=== PATIENT | male | born 1970 | race African-American/Black ===

== ENCOUNTER 2019-10-01 06:24 | Emergency (ER) | payer OTHER ==
[2019-10-01 06:51] VITALS: BMI 28.7
--- NOTE | 2019-10-01 07:15 | PDOC ---
History of Present Illness - General Chief Complaint: Chest Pain Stated Complaint: CHEST PAIN Time Seen by Provider: 10/01/19 06:58 - History of Present Illness Initial Comments: 10/01/19 07:09 The patient is a 49 y/o male with PMHx of HTN and Rheumatoid Arthritis here with chest pain. Pain woke patient from sleep around 5:30 a.m. and is L sided, "squeezing" and non-radiating. Associated with shortness of breath. No lightheadedness, palpitations, nausea, diaphoresis. BP measured by 160/ 120. States he did some arm exercises and took his anti-hypertensives with some relief of the pain within 30 minutes. Had not taken his anti- hypertensives for the last two days, though he does have the medication at home. Recent 5 day course of Amoxicillin following tooth removal. Episode of GERD yesterday evening following drinking a glass of wine. H/o stress testing 3 months previous with normal results. Remote h/o smoking for 5 years. Reports ASA or Lisinopril allergy with angioedema like reaction following administration of ASA/Lisinopril tablet previously. Family history significant for maternal HTN. PMD: Cannot recall name As per EMR, no previous evaluation in our ED. Past History - Past Medical History Allergies/Adverse Reactions: Allergies Allergy/AdvReac Type Severity Reaction Status Date / Time No Known Allergies Allergy Verified 10/01/19 06:51 - Psycho Social/Smoking Cessation Hx Smoking History: Never smoked Hx Alcohol Use: Yes Review of Systems - Review of Systems Constitutional: No: Chills, Fever HEENTM: No: Recent change in vision Respiratory: Yes: Shortness of Breath. No: Cough, Wheezing Cardiac (ROS): Yes: Chest Pain. No: Lightheadedness, Palpitations, Syncope ABD/GI: No: Constipated, Diarrhea, Nausea, Vomiting Neurological: No: Headache, Weakness *Physical Exam - Vital Signs Last Vital Signs Temp Pulse Resp BP Pulse Ox 98.6 F 84 18 148/96 99 10/01/19 06:25 10/01/19 06:25 10/01/19 06:25 10/01/19 06:25 10/01/19 06:25 - Physical Exam 10/01/19 07:53 Triage VS reviewed NAD CV: S1, S2, RRR Respiratory: CLTA B/L, no wheeze/crackle Abdomen: soft, non-tender, (+) TTP Extremity: no calf tenderness, no edema, 2+ DP pulses Neuro: A&O x3, CN II-XII intact ED Treatment Course - LABORATORY CBC & Chemistry Diagram: 10/01/19 07:27 10/01/19 07:27 Medical Decision Making - Medical Decision Making 10/01/19 07:13 49 y/o male with chest pain. Pain resolved with muscle stretching and anti-hypertensives Hypertensive (137/100) - however patient recently took HCTZ, Amoldipine within the last 1 hour - continue to monitor Will evaluate for r/o ACS, also consider MSK, costochondritis, GERD, Esophageal Spasm, gastritis. PLAN - EKG, Troponin, CXR - Clopidrogel as patient has possible ASA allergy - Business Functional Analyst 10/01/19 07:51 EKG with SHAHBAZ in V1-V3, flat T waves in leads II; SHAHBAZ concerning for STEMI vs. early repolarization Labs pending 10/01/19 08:38 CBC unremarkable Troponin, CMP pending 10/01/19 09:14 Troponin, BNP wnL CMP otherwise unremarkable 10/01/19 09:17 Reassessed @ bedside, remains ASx VSS - repeat BP 148/96 10/01/19 11:23 Repeat EKG w/o acute ischemic change 10/01/19 12:26 Repeat Troponin (-) 10/01/19 12:44 Patient counseled on importance of f/u with PMD for further evaluation Clinical Impression: Atypical CP, possibly 2/2 to medication non-adherence to anti-hypertensive regimen Discharge - Discharge Information Problems reviewed: Yes Clinical Impression/Diagnosis: Pain Condition: Good Disposition: HOME - Admission No - Follow up/Referral Referrals: Gregory Baez [Primary Care Provider] - - Patient Discharge Instructions Patient Printed Discharge Instructions: DI for Atypical Chest Pain, DI for Chest Pain Additional Instructions: You were evaluated today for your chest pain. A chest x-ray, an EKG and your labs showed no concerning findings and at this time you are safe for discharge home. Please continue to take your blood pressure medications as prescribed. Please make a follow-up appointment with your primary care doctor in the next 3 days. Your care is not complete until you are evaluated by your primary care doctor. Return to the Emergency Department for any new/worsening/concerning symptoms. - Post Discharge Activity
[2019-10-01] MEDS ORDERED: ASPIRIN 325 MG TABLET PO ONE (07:36)
[2019-10-01] MEDS ORDERED: ASPIRIN 81 MG CHEWABLE TABLETS ONE (07:41)
[2019-10-01] MEDS ORDERED: CLOPIDOGREL BISULFATE 300 MG TABLET PO ONE (07:46)
[2019-10-01] MEDS ORDERED: CLOPIDOGREL BISULFATE 300 MG TABLET ONE (07:46)
[2019-10-01 08:07] VITALS: BP 137/100; PULSE 83; TEMP 98.2
[2019-10-01 08:31] LABS: BASO % 0.5 % (0-2.0); EOS % 2.9 % (0-4.5); HEMATOCRIT 40.6 % (35.4-49); HEMOGLOBIN 13.5 GM/dL (11.7-16.9); LYMPH % 40.9 % (8-40); MCH 29.9 pg (25.7-33.7); MCHC 33.2 g/dl (32.0-35.9); MEAN CELL VOLUME 90.1 fl (80-96); MEAN PLT VOLUME 9.4 fl (7.5-11.1); MONO % 8.9 % (3.8-10.2); NEUT % 46.8 % (42.8-82.8); PLATELET COUNT 246 K/MM3 (134-434); RBC 4.51 M/mm3 (4.00-5.60); RDW 14.1 % (11.9-15.9); WHITE BLOOD COUNT 6.5 K/mm3 (4.0-10.0)
[2019-10-01 08:42] LABS: INR 0.97 (0.83-1.09); PROTHROMBIN TIME (PATIENT) 11.5 SEC (9.7-13.0)
[2019-10-01 08:44] LABS: ACTIVATED PTT 39.5 SECONDS (25.2-36.5)
[2019-10-01 09:03] LABS: ALBUMIN 3.4 g/dl (3.4-5.0); ALK PHOS 53 U/L (45-117); ANION GAP 6 MMOL/L (8-16); BILIRUBIN,TOTAL 0.6 mg/dL (0.2-1); CHLORIDE 106 mmol/L (98-107); CO2 27 mmol/L (21-32); CREATININE 0.9 mg/dL (0.55-1.3); GLUCOSE,RANDOM 97 mg/dL (74-106); N-TERMINAL BNP < 5.0 pg/ml (5-125); POTASSIUM 4.2 mmol/L (3.5-5.1); SGOT/AST 22 U/L (15-37); SGPT/ALT 45 U/L (13-61); SODIUM 139 mmol/L (136-145); TOT PROT 7.6 g/dl (6.4-8.2)
--- NOTE | 2019-10-01 10:18 | PDOC ---
Attending Attestation - Resident Resident Name: Edilberto Jonesica - ED Attending Attestation I have performed the following: I have examined & evaluated the patient, The case was reviewed & discussed with the resident, I agree w/resident's findings & plan - HPI HPI: 10/01/19 10:13 49-year-old male with history of hypertension presents with chest pain this morning. Patient was in his usual state of good health, which includes unlimited exercise tolerance, admits to medication noncompliance for the last 48 hours, and awoke this morning fine but developed left chest tightness upon standing from bed, not associated with any lightheadedness/nausea/palpitations/ shortness of breath/diaphoresis. The patient took his blood pressure medications after measurement was 160/120, symptoms improved over the next 20 minutes, presents for evaluation. At baseline, has no exercise limitations, had a normal exercise stress test 3 months ago. Denies any preceding symptoms of shortness of breath or leg swelling - Physicial Exam PE: 10/01/19 10:14 Vitals as noted, blood pressure initially 130/100,Now 135/90 Well-appearing seated comfortably in stretcher in no acute distress Heart is regular, lungs are clear Abdomen benign No edema Neuro normal - Medical Decision Making 10/01/19 10:15 49-year-old male with history of difficult to control hypertension presents with nonexertional episode of chest pain this morning in the setting of elevated blood pressure and likely hypertensive episode in the setting of medication noncompliance for 48 hours. Patient is well-appearing here with normal exam and no evidence of endorgan injury, will need cardiac work-up to rule out heart strain, which would likely be due to elevated blood pressure more so than CAD/ACS, particularly given the normal stress test 3 months ago. 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 if patient can recall name/number 10/01/19 10:58 first trop negative, CXR normal remains asx 2nd EKG unchanged 2nd trop pending, then dispo Heart Score/ECG Review #1 ECG reviewed & interpreted by me at: 07:46 General ECG Interpretation: Sinus Rhythm, Normal Rate (79), Normal Intervals ( qtc 417), No acute ischemic changes (early repol change V2V3 without reciprocal changes) Compared to previous ECG there are: Previous ECG unavail #2 ECG reviewed & interpreted by me at: 10:44 General ECG Interpretation: Sinus Rhythm, Normal Rate (82), Normal Intervals ( qtc 408), No acute ischemic changes (early repol, no T wave changes) Compared to previous ECG there are: No significant change
[2019-10-01 10:30] LABS: ANISOCYTOSIS 0; MACROCYTOSIS 0; PLATELET ESTIMATE NORMAL
--- NOTE | 2019-10-01 10:33 | EKG ---
Test Reason : Blood Pressure : / mmHG Vent. Rate : 079 BPM Atrial Rate : 079 BPM P-R Int : 128 ms QRS Dur : 088 ms QT Int : 364 ms P-R-T Axes : 057 044 013 degrees QTc Int : 417 ms NORMAL SINUS RHYTHM ST ELEVATION CONSIDER ANTERIOR INJURY OR ACUTE INFARCT ACUTE NV / STEMI ABNORMAL ECG NO PREVIOUS ECGS AVAILABLE Confirmed by Tin Berumen MD ([id number]) on 10/01/2019 10:32:48 AM Referred By: Confirmed By:Tin Berumen MD
--- NOTE | 2019-10-01 16:23 | EKG ---
Test Reason : Blood Pressure : / mmHG Vent. Rate : 082 BPM Atrial Rate : 082 BPM P-R Int : 128 ms QRS Dur : 090 ms QT Int : 350 ms P-R-T Axes : 055 054 007 degrees QTc Int : 408 ms NORMAL SINUS RHYTHM POSSIBLE LEFT ATRIAL ENLARGEMENT NONSPECIFIC ST AND T WAVE ABNORMALITY ABNORMAL ECG WHEN COMPARED WITH ECG OF 01-OCT-2019 07:46, NO SIGNIFICANT CHANGE WAS FOUND Confirmed by MD Brinda, Diomedes ([id number]) on 10/01/2019 4:23:19 PM Referred By: Confirmed By:Diomedes Parry MD
== END 2019-10-01 12:39 | disposition home or self-care (01) ==
LOC: JER 06:24
DX: R07.9 Chest pain, unspecified (principal); I10 Essential (primary) hypertension; M06.9 Rheumatoid arthritis, unspecified
CPT/HCPCS: 36415; 71045-TC-FY; 80053; 82550; 83880; 84484; 85025; 85610; 85730; 93005; 93010; 99285-25

== ENCOUNTER 2020-08-20 14:20 | Inpatient (IN) | payer OTHER ==
[2020-08-20] MEDS ORDERED: FAMOTIDINE 20 MG/50 ML IVPB 20 MG/50 ML MG IVPB ONE ×2 (15:59→16:10)
[2020-08-20] MEDS ORDERED: MAG HYDROX/AL HYDROX/SIMETH 30 ML UNIT-DOSE CUP PO ONE (15:59)
[2020-08-20] MEDS ORDERED: ONDANSETRON 4 MG/2 ML VIAL IVPUSH ONE (15:59)
[2020-08-20] MEDS ORDERED: LACTATED RINGERS SOLUTION 1000 ML INFUS.BAG IV ONE ×2 (15:59→17:13)
[2020-08-20] MEDS ORDERED: ONDANSETRON 4 MG/2 ML VIAL ONE (16:10)
[2020-08-20] MEDS ORDERED: MAG HYDROX/AL HYDROX/SIMETH 30 ML UNIT-DOSE CUP ONE (16:10)
[2020-08-20 16:42] LABS: BASO % 0.4 % (0-2.0); HEMATOCRIT 43.6 % (35.4-49); HEMOGLOBIN 14.4 GM/dL (11.7-16.9); LYMPH % 10.2 % (8-40); MEAN CELL VOLUME 91.1 fl (80-96); MEAN PLT VOLUME 10.2 fl (7.5-11.1); MONO % 3.8 % (3.8-10.2); NEUT % 85.6 % (42.8-82.8); PLATELET COUNT 254 K/MM3 (134-434); RBC 4.78 M/mm3 (4.00-5.60); RDW 13.9 % (11.9-15.9); WHITE BLOOD COUNT 9.9 K/mm3 (4.0-10.0)
[2020-08-20 16:56] LABS: POTASSIUM 4.6 mmol/L (3.5-5.1)
[2020-08-20 16:58] LABS: CALCIUM 9.2 mg/dL (8.5-10.1)
[2020-08-20 16:59] LABS: ALBUMIN 3.2 g/dl (3.4-5.0); BLOOD UREA NITROGEN 21.9 mg/dL (7-18)
[2020-08-20 17:02] LABS: CREATININE 1.7 mg/dL (0.55-1.3)
[2020-08-20 17:03] LABS: BILIRUBIN,TOTAL 0.6 mg/dL (0.2-1); TOT PROT 7.8 g/dl (6.4-8.2)
[2020-08-20 17:13] LABS: INR 0.96 (0.83-1.09); PROTHROMBIN TIME (PATIENT) 11.6 SEC (9.7-13.0)
[2020-08-20] MEDS ORDERED: SODIUM CHLORIDE 0.9% 500 ML INFUS.BAG IV ONE (17:14)
[2020-08-20 17:16] LABS: ACTIVATED PTT 31.7 SECONDS (25.2-36.5)
[2020-08-20 18:44] LABS: ARTERIAL BLD GAS O2 SATURATION 96.9 mmHg (95-98); ARTERIAL BLOOD GAS BASE EXCESS -17.6 mmol/L (-2-2); ARTERIAL BLOOD GAS PO2 107.7 mmHg (80-100)
[2020-08-20 18:47] LABS: ALLENS TEST POSITIVE
[2020-08-20 18:50] LABS: ARTERIAL BLOOD GAS pH 7.191 (7.350-7.450)
[2020-08-20] MEDS ORDERED: INSULIN REGULAR HUMAN 100 UNITS/ML *VIAL IVPUSH ONE ×2 (19:01→21:27)
[2020-08-20] MEDS ORDERED: INSULIN REGULAR 100 UNITS in SODIUM CHLORIDE 99 ML IVPB SCH (19:15)
[2020-08-20 21:47] LABS: POTASSIUM 4.2 mmol/L (3.5-5.1)
[2020-08-20 21:49] LABS: CALCIUM 8.9 mg/dL (8.5-10.1)
[2020-08-20 21:50] LABS: BLOOD UREA NITROGEN 17.4 mg/dL (7-18)
[2020-08-20 21:52] LABS: CREATININE 1.4 mg/dL (0.55-1.3)
[2020-08-20] MEDS ORDERED: INSULIN REGULAR HUMAN 100 UNITS/ML *VIAL SQ ONE (21:52)
[2020-08-21 00:10] LABS: POTASSIUM 4.1 mmol/L (3.5-5.1)
[2020-08-21 00:12] LABS: CALCIUM 8.8 mg/dL (8.5-10.1)
[2020-08-21 00:13] LABS: BLOOD UREA NITROGEN 16.1 mg/dL (7-18)
[2020-08-21 00:16] LABS: CREATININE 1.3 mg/dL (0.55-1.3)
[2020-08-21] MEDS ORDERED: INSULIN REGULAR 100 UNITS in SODIUM CHLORIDE 99 ML IVPB SCH (00:30)
[2020-08-21] MEDS ORDERED: SODIUM CHLORIDE 0.45%/POT 20 MEQ/1,000 ML INFUS.BAG IV SCH ×2 (00:45→11:20)
[2020-08-21] MEDS ORDERED: LACTATED RINGERS SOLUTION 1,000 ML/1,000 ML INFUS.BAG IV SCH (01:30)
[2020-08-21 03:08] LABS: BLOOD UREA NITROGEN 12.2 mg/dL (7-18); CALCIUM 7.1 mg/dL (8.5-10.1)
[2020-08-21 03:14] LABS: POTASSIUM 7.2 mmol/L (3.5-5.1)
[2020-08-21 04:22] LABS: POTASSIUM 3.4 mmol/L (3.5-5.1)
[2020-08-21 04:24] LABS: CALCIUM 8.4 mg/dL (8.5-10.1)
[2020-08-21 04:25] LABS: ALBUMIN 2.9 g/dl (3.4-5.0); BLOOD UREA NITROGEN 13.5 mg/dL (7-18); MAGNESIUM 2.3 mg/dL (1.8-2.4)
[2020-08-21] MEDS ORDERED: POTASSIUM CHLORIDE ORAL LIQUID 20 MEQ/15 ML PO ONE ×2 (04:26→04:58)
[2020-08-21 04:28] LABS: CREATININE 1.2 mg/dL (0.55-1.3)
[2020-08-21 04:29] LABS: TOT PROT 6.9 g/dl (6.4-8.2)
[2020-08-21 04:37] LABS: BILIRUBIN,TOTAL 0.5 mg/dL (0.2-1)
[2020-08-21] MEDS ORDERED: ONDANSETRON 4 MG/2 ML VIAL IVPUSH ONE (04:44)
[2020-08-21] MEDS ORDERED: D5-1/2NS+40 MEQ KCL - 40 MEQ/1,000 ML INFUS.BAG IV SCH (04:45)
[2020-08-21] MEDS ORDERED: POTASSIUM CHLORIDE ORAL LIQUID 20 MEQ/15 ML ONE (04:47)
[2020-08-21] MEDS ORDERED: ONDANSETRON 4 MG/2 ML VIAL ONE (04:48)
[2020-08-21] MEDS ORDERED: INSULIN (LEVEMIR) 100 UNITS/ML UNITS SQ ONE (04:58)
[2020-08-21 05:36] LABS: PHOSPHOROUS 1.1 mg/dL (2.5-4.9)
[2020-08-21] MEDS ORDERED: POTASSIUM PHOSPHATE 30 MM in SODIUM CHLORIDE 500 ML IVPB ONE (07:00)
[2020-08-21] MEDS: KCL 10 MEQ IVPB 10 MEQ/100 ML INFUS.BAG IVPB SCH ×3 (07:16→09:59)
[2020-08-21] MEDS: INSULIN SLIDING SCALE (NOVOLOG) 1 VIAL SQ SCH ×4 (08:04→21:30)
[2020-08-21 08:13] LABS: EPI CELLS 13 /uL (0-25.1); HYALINE CASTS 3 /uL (0-3.1); PH,URINE 5.5 (5.0-8.0); URINE APPEARANCE CLEAR; URINE BACTERIA 24 /uL (0-1359); URINE BILIRUBIN NEGATIVE (NEGATIVE); URINE COLOR YELLOW; URINE GLUCOSE (UA) 3+ (NEGATIVE); URINE KETONE 4+ (NEGATIVE); URINE LEUK ESTERASE NEGATIVE (NEGATIVE); URINE NITRITE NEGATIVE (NEGATIVE); URINE PROTEIN 1+ (NEGATIVE); URINE RBC 2 /uL (0-23.9); URINE UROBILINOGEN 0.2 mg/dL (0.2-1.0); URINE WBC 2 /uL (0-25.8)
[2020-08-21] MEDS ORDERED: KCL 10 MEQ IVPB 20 MEQ/200 ML INFUS.BAG IVPB ONE (08:29)
[2020-08-21] MEDS ORDERED: MUPIROCIN 2% TOPICAL OINTMENT FOR DECOLONIZATION NS SCH ×2 (10:00→22:00)
[2020-08-21] MEDS ORDERED: ENOXAPARIN NA (PORCINE) 40 MG/0.4 ML DISP.SYRIN SQ SCH (10:00)
[2020-08-21] MEDS ORDERED: SODIUM PHOSPHATE - 40 MM in SODIUM CHLORIDE 500 ML IVPB ONE ×3 (11:00→16:15)
[2020-08-21 13:46] LABS: BASO % 0.5 % (0-2.0); EOS % 0.6 % (0-4.5); HEMATOCRIT 37.9 % (35.4-49); HEMOGLOBIN 12.6 GM/dL (11.7-16.9); LYMPH % 34.8 % (8-40); MCH 29.6 pg (25.7-33.7); MCHC 33.2 g/dl (32.0-35.9); MEAN CELL VOLUME 89.2 fl (80-96); MEAN PLT VOLUME 9.9 fl (7.5-11.1); MONO % 8.5 % (3.8-10.2); NEUT % 55.6 % (42.8-82.8); PLATELET COUNT 190 K/MM3 (134-434); RBC 4.25 M/mm3 (4.00-5.60); RDW 13.9 % (11.9-15.9); WHITE BLOOD COUNT 6.1 K/mm3 (4.0-10.0)
[2020-08-21 14:11] LABS: POTASSIUM 3.7 mmol/L (3.5-5.1)
[2020-08-21 14:13] LABS: ALBUMIN 2.6 g/dl (3.4-5.0); BLOOD UREA NITROGEN 11.3 mg/dL (7-18); CALCIUM 8.3 mg/dL (8.5-10.1); MAGNESIUM 2.3 mg/dL (1.8-2.4)
[2020-08-21 14:16] LABS: CREATININE 1.3 mg/dL (0.55-1.3)
[2020-08-21 14:18] LABS: BILIRUBIN,TOTAL 0.5 mg/dL (0.2-1); TOT PROT 6.3 g/dl (6.4-8.2)
[2020-08-21 14:24] LABS: PHOSPHOROUS 0.8 mg/dL (2.5-4.9)
[2020-08-21] MEDS ORDERED: NAPH,MB-DB/K PH,MBDB POWDER PACKET PO ONE (15:35)
[2020-08-21] MEDS ORDERED: INSULIN (NOVOLOG) ASPART 100 UNITS/ML 10ML VIAL ONE (20:44)
[2020-08-21] MEDS: ENOXAPARIN NA (PORCINE) 40 MG/0.4 ML DISP.SYRIN SQ SCH (21:32)
[2020-08-21] MEDS ORDERED: CHLORHEXIDINE GLUCONATE 4% CLEANSER FOR DECOLONIZATION TP SCH ×2 (22:00)
[2020-08-22] MEDS ORDERED: INSULIN (LEVEMIR) 100 UNITS/ML UNITS SQ SCH ×3 (07:00→15:01)
[2020-08-22] MEDS: INSULIN SLIDING SCALE (NOVOLOG) 1 VIAL SQ SCH ×4 (07:18→21:25)
[2020-08-22 08:59] LABS: HEMATOCRIT 36.4 % (35.4-49); HEMOGLOBIN 12.1 GM/dL (11.7-16.9); MCH 29.8 pg (25.7-33.7); MCHC 33.4 g/dl (32.0-35.9); MEAN CELL VOLUME 89.3 fl (80-96); MEAN PLT VOLUME 10.5 fl (7.5-11.1); PLATELET COUNT 169 K/MM3 (134-434); RBC 4.07 M/mm3 (4.00-5.60); RDW 14.2 % (11.9-15.9); WHITE BLOOD COUNT 5.3 K/mm3 (4.0-10.0)
[2020-08-22 09:26] LABS: POTASSIUM 3.3 mmol/L (3.5-5.1)
[2020-08-22 09:37] LABS: ALBUMIN 2.6 g/dl (3.4-5.0); BLOOD UREA NITROGEN 6.6 mg/dL (7-18); CALCIUM 8.6 mg/dL (8.5-10.1)
[2020-08-22 09:38] LABS: PHOSPHOROUS 2.4 mg/dL (2.5-4.9)
[2020-08-22 09:39] LABS: MAGNESIUM 1.9 mg/dL (1.8-2.4)
[2020-08-22 09:40] LABS: BILIRUBIN,TOTAL 0.6 mg/dL (0.2-1); TOT PROT 5.9 g/dl (6.4-8.2)
[2020-08-22] MEDS: ENOXAPARIN NA (PORCINE) 40 MG/0.4 ML DISP.SYRIN SQ SCH ×2 (10:21→21:24)
[2020-08-22] MEDS ORDERED: POTASSIUM CHLORIDE TABS 20 MEQ TABLET.ER (FP) PO ONE ×2 (11:54→18:32)
[2020-08-22] MEDS ORDERED: SODIUM CHLORIDE 0.45%/POT 20 MEQ/1,000 ML INFUS.BAG IV SCH (13:00)
[2020-08-22] MEDS ORDERED: INSULIN (NOVOLOG) ASPART 100 UNITS/ML 10ML VIAL SQ ONE (13:19)
[2020-08-22 14:23] VITALS: BMI 24.8
[2020-08-22 14:42] LABS: CALCIUM 8.7 mg/dL (8.5-10.1)
[2020-08-22 14:43] LABS: BLOOD UREA NITROGEN 7.8 mg/dL (7-18)
[2020-08-22 15:05] LABS: POTASSIUM 2.9 mmol/L (3.5-5.1)
[2020-08-22] MEDS: POTASSIUM CHLORIDE TABS 20 MEQ TABLET.ER (FP) PO SCH (17:00)
[2020-08-22 18:25] LABS: POTASSIUM 3.2 mmol/L (3.5-5.1)
[2020-08-22 18:26] LABS: CALCIUM 8.4 mg/dL (8.5-10.1)
[2020-08-22 18:27] LABS: BLOOD UREA NITROGEN 10.8 mg/dL (7-18)
[2020-08-22 18:30] LABS: CREATININE 1.1 mg/dL (0.55-1.3)
[2020-08-22] MEDS: INSULIN (LEVEMIR) 100 UNITS/ML UNITS SQ SCH (21:25)
[2020-08-22] MEDS: KCL 10 MEQ IVPB 10 MEQ/100 ML INFUS.BAG IVPB SCH (21:31)
[2020-08-23 01:37] LABS: POTASSIUM 3.6 mmol/L (3.5-5.1)
[2020-08-23 01:38] LABS: CALCIUM 8.5 mg/dL (8.5-10.1)
[2020-08-23 01:39] LABS: BLOOD UREA NITROGEN 9.4 mg/dL (7-18)
[2020-08-23 01:42] LABS: CREATININE 0.9 mg/dL (0.55-1.3)
[2020-08-23] MEDS: KCL 10 MEQ IVPB 10 MEQ/100 ML INFUS.BAG IVPB SCH ×3 (03:18→10:00)
[2020-08-23] MEDS: INSULIN SLIDING SCALE (NOVOLOG) 1 VIAL SQ SCH ×4 (06:40→22:08)
[2020-08-23] MEDS ORDERED: predniSONE 20 MG TABLET (UD) PO SCH (10:00)
[2020-08-23] MEDS ORDERED: POTASSIUM CHLORIDE TABS 20 MEQ TABLET.ER (FP) PO SCH (10:00)
[2020-08-23] MEDS ORDERED: PT OWN MED DRAWER 7, Y5N ONE (10:19)
[2020-08-23] MEDS: POTASSIUM CHLORIDE TABS 20 MEQ TABLET.ER (FP) PO SCH (10:25)
[2020-08-23] MEDS: ENOXAPARIN NA (PORCINE) 40 MG/0.4 ML DISP.SYRIN SQ SCH ×2 (10:25→22:06)
[2020-08-23] MEDS ORDERED: POLYETHYLENE GLYCOL 3350 119 GM BTL PO ONE (10:28)
[2020-08-23] MEDS: MAGNESIUM CL 64 MG TABLET.SA PO SCH (10:29)
[2020-08-23 11:04] LABS: BASO % 0.7 % (0-2.0); EOS % 0.8 % (0-4.5); HEMATOCRIT 38.5 % (35.4-49); HEMOGLOBIN 13.1 GM/dL (11.7-16.9); LYMPH % 44.2 % (8-40); MEAN CELL VOLUME 88.2 fl (80-96); MEAN PLT VOLUME 11.1 fl (7.5-11.1); MONO % 10.8 % (3.8-10.2); NEUT % 43.5 % (42.8-82.8); PLATELET COUNT 189 K/MM3 (134-434); RBC 4.37 M/mm3 (4.00-5.60); RDW 13.9 % (11.9-15.9); WHITE BLOOD COUNT 5.4 K/mm3 (4.0-10.0)
[2020-08-23 11:13] LABS: POTASSIUM 3.5 mmol/L (3.5-5.1)
[2020-08-23 11:16] LABS: ALBUMIN 3.1 g/dl (3.4-5.0); BLOOD UREA NITROGEN 8.9 mg/dL (7-18); CALCIUM 8.8 mg/dL (8.5-10.1)
[2020-08-23 11:19] LABS: CREATININE 0.9 mg/dL (0.55-1.3); PHOSPHOROUS 1.9 mg/dL (2.5-4.9)
[2020-08-23 11:21] LABS: BILIRUBIN,TOTAL 0.5 mg/dL (0.2-1); TOT PROT 7.1 g/dl (6.4-8.2)
[2020-08-23] MEDS ORDERED: Insulin (LOG) Aspart 100 UNITS/ML VIAL SQ ONE (11:55)
[2020-08-23] MEDS: NAPH,MB-DB/K PH,MBDB POWDER PACKET PO SCH ×2 (16:37→22:06)
[2020-08-23] MEDS: Insulin (LOG) Aspart 100 UNITS/ML VIAL SQ SCH (18:49)
[2020-08-23] MEDS: INSULIN (LEVEMIR) 100 UNITS/ML UNITS SQ SCH (22:06)
[2020-08-24] MEDS: INSULIN (LEVEMIR) 100 UNITS/ML UNITS SQ SCH ×2 (06:32→09:42)
[2020-08-24] MEDS: INSULIN SLIDING SCALE (NOVOLOG) 1 VIAL SQ SCH ×2 (06:32→12:15)
[2020-08-24] MEDS: Insulin (LOG) Aspart 100 UNITS/ML VIAL SQ SCH ×2 (06:32→12:15)
[2020-08-24] MEDS ORDERED: PT OWN MED DRAWER 7, Y5N ONE (09:33)
[2020-08-24] MEDS: POTASSIUM CHLORIDE TABS 20 MEQ TABLET.ER (FP) PO SCH (09:41)
[2020-08-24] MEDS: MAGNESIUM CL 64 MG TABLET.SA PO SCH (09:41)
[2020-08-24] MEDS: ENOXAPARIN NA (PORCINE) 40 MG/0.4 ML DISP.SYRIN SQ SCH (09:41)
[2020-08-24 09:55] LABS: POTASSIUM 3.7 mmol/L (3.5-5.1)
[2020-08-24 09:59] LABS: BLOOD UREA NITROGEN 6.8 mg/dL (7-18); CALCIUM 9.1 mg/dL (8.5-10.1)
[2020-08-24 10:00] LABS: MAGNESIUM 2.3 mg/dL (1.8-2.4)
[2020-08-24 10:02] LABS: CREATININE 0.8 mg/dL (0.55-1.3)
[2020-08-24 10:03] LABS: PHOSPHOROUS 2.9 mg/dL (2.5-4.9)
[2020-08-24 10:04] LABS: BILIRUBIN,TOTAL 0.6 mg/dL (0.2-1); TOT PROT 6.8 g/dl (6.4-8.2)
[2020-08-24 10:24] LABS: BASO % 0.6 % (0-2.0); EOS % 0.6 % (0-4.5); HEMATOCRIT 37.7 % (35.4-49); HEMOGLOBIN 12.5 GM/dL (11.7-16.9); LYMPH % 40.4 % (8-40); MCHC 33.2 g/dl (32.0-35.9); MEAN CELL VOLUME 87.3 fl (80-96); MEAN PLT VOLUME 10.3 fl (7.5-11.1); MONO % 10.5 % (3.8-10.2); NEUT % 47.9 % (42.8-82.8); PLATELET COUNT 203 K/MM3 (134-434); RBC 4.32 M/mm3 (4.00-5.60); RDW 13.6 % (11.9-15.9)
[2020-08-24 14:20] VITALS: BP 135/92; PULSE 84; TEMP 98.1
== END 2020-08-24 13:57 | disposition home or self-care (01) | DRG 420 ==
LOC: JER 14:20 → JERBED 19:02 → J5S 08-21 11:21
PROVIDERS: ADMIT Internal Medicine Pulmonary Disease
DX: E11.10 Type 2 diabetes mellitus with ketoacidosis without coma (principal); I10 Essential (primary) hypertension; E87.1 Hypo-osmolality and hyponatremia; E87.6 Hypokalemia; E83.39 Other disorders of phosphorus metabolism; R11.2 Nausea with vomiting, unspecified; E86.0 Dehydration; M06.9 Rheumatoid arthritis, unspecified; E11.65 Type 2 diabetes mellitus with hyperglycemia
CPT/HCPCS: 36415; 36600; 71045-TC-FY; 74177-TC; 80048; 80053; 81003; 82010; 82728; 82803; 82962; 83036; 83540; 83550; 83690; 83735; 84100; 85025; 85027; 85610; 85730; 86341; 87086; 93005; 93010; 99291; C9803; J3480; U0003

== ENCOUNTER 2022-11-23 10:22 | Emergency (ER) | payer OTHER ==
[2022-11-23 10:29] VITALS: RESP 18; BMI 28.7
[2022-11-23 12:00] LABS: HEMATOCRIT 39.4 % (35.4-49); HEMOGLOBIN 13.3 GM/dL (11.7-16.9); MCH 29.3 pg (25.7-33.7); MCHC 33.6 g/dl (32.0-35.9); MEAN CELL VOLUME 87.1 fl (80-96); PLATELET COUNT 148 10^3/uL (134-434); RBC 4.52 M/mm3 (4.00-5.60); RDW 13.2 % (11.9-15.9); WHITE BLOOD COUNT 5.5 K/mm3 (4.0-10.0)
[2022-11-23 12:20] LABS: BLOOD UREA NITROGEN 12.9 mg/dL (7-18); CALCIUM 8.8 mg/dL (8.5-10.1)
[2022-11-23 12:21] LABS: ALBUMIN 3.4 g/dl (3.4-5.0)
[2022-11-23 12:23] LABS: CREATININE 1.3 mg/dL (0.55-1.3)
[2022-11-23] MEDS ORDERED: INSULIN (NOVOLOG) ASPART 100 UNITS/ML 10ML VIAL SQ ONE (12:28)
[2022-11-23 12:57] VITALS: BP 140/92; PULSE 78; TEMP 98.1
== END 2022-11-23 13:16 | disposition home or self-care (01) ==
LOC: JER 10:22
PROC: 3E013VG Introduction of Insulin into Subcutaneous Tissue, Percutaneous Approach (ICD-10-PCS; principal; 2022-11-23)
DX: I15.9 Secondary hypertension, unspecified (principal)
CPT/HCPCS: 36415; 80053; 85027; 93005; 93010; 99284-25

== ENCOUNTER 2023-01-22 06:42 | Emergency (ER) | payer OTHER ==
[2023-01-22 06:50] VITALS: BP 131/86; PULSE 89; RESP 20; TEMP 98.1; BMI 28.4
[2023-01-22 08:46] LABS: EOS % 3.6 % (0-4.5); HEMATOCRIT 40.8 % (35.4-49); HEMOGLOBIN 13.3 GM/dL (11.7-16.9); LYMPH % 42.9 % (8-40); MCH 29.1 pg (25.7-33.7); MCHC 32.6 g/dl (32.0-35.9); MEAN CELL VOLUME 89.2 fl (80-96); MEAN PLT VOLUME 9.7 fl (7.5-11.1); MONO % 11.8 % (3.8-10.2); NEUT % 40.7 % (42.8-82.8); PLATELET COUNT 228 10^3/uL (134-434); RBC 4.58 M/mm3 (4.00-5.60); RDW 13.1 % (11.9-15.9); WHITE BLOOD COUNT 7.3 K/mm3 (4.0-10.0)
[2023-01-22 08:56] LABS: POTASSIUM 4.2 mmol/L (3.5-5.1)
[2023-01-22 08:58] LABS: ALBUMIN 3.7 g/dl (3.4-5.0); CALCIUM 9.8 mg/dL (8.5-10.1)
[2023-01-22 09:01] LABS: CREATININE 1.3 mg/dL (0.55-1.3)
[2023-01-22 09:03] LABS: BILIRUBIN,TOTAL 0.6 mg/dL (0.2-1); TOT PROT 8.1 g/dl (6.4-8.2)
[2023-01-22 09:06] LABS: N-TERMINAL BNP 20.7 pg/ml (5-125)
[2023-01-22] MEDS ORDERED: ALBUTEROL SO4 2.5/IPRATROPIUM 0.5 INH SOL 3 ML VIAL.NEB. NEB ONE ×2 (09:22→09:43)
[2023-01-22] MEDS ORDERED: ACETAMINOPHEN 500 MG TABLET (FP) PO ONE (09:40)
[2023-01-22] MEDS ORDERED: ACETAMINOPHEN 325 MG TABLET (FP) ONE (09:43)
== END 2023-01-22 10:20 | disposition home or self-care (01) ==
LOC: JER 06:42
PROC: 3E0F7GC Introduction of Other Therapeutic Substance into Respiratory Tract, Via Natural or Artificial Opening (ICD-10-PCS; principal; 2023-01-22)
DX: R05.9 Cough, unspecified (principal); R06.02 Shortness of breath; J40 Bronchitis, not specified as acute or chronic; Z20.822 Contact with and (suspected) exposure to COVID-19
CPT/HCPCS: 0241U-QW; 36415; 71046-TC-FY; 80053; 83880; 84484; 85025; 93005; 93010; 99285-25

== ENCOUNTER 2023-05-21 15:15 | Emergency (ER) | payer MEDICARE, OTHER ==
[2023-05-21 15:19] VITALS: BP 131/104; PULSE 102; RESP 18; TEMP 98.3; BMI 28.4
[2023-05-21] MEDS ORDERED: DEXAMETHASONE SOD PHOSPHATE 10 MG/1 ML VIAL IM ONE (17:43)
[2023-05-21] MEDS ORDERED: ACETAMINOPHEN 500 MG TABLET (FP) PO ONE (17:43)
[2023-05-21] MEDS ORDERED: DEXAMETHASONE SOD PHOSPHATE 10 MG/1 ML VIAL ONE (18:53)
[2023-05-21] MEDS ORDERED: ACETAMINOPHEN 500 MG TABLET (FP) ONE (18:53)
== END 2023-05-21 22:49 | disposition home or self-care (01) ==
LOC: JERFT 15:15 → JER 15:15 → JERFT 22:49
PROC: 3E023GC Introduction of Other Therapeutic Substance into Muscle, Percutaneous Approach (ICD-10-PCS; principal; 2023-05-21)
DX: M25.522 Pain in left elbow (principal); M54.50 Low back pain, unspecified; M48.061 Spinal stenosis, lumbar region without neurogenic claudication; M19.022 Primary osteoarthritis, left elbow; G89.29 Other chronic pain
CPT/HCPCS: 72131-TC; 73070-TC-LT-FY; 73200-TC-RT; 96374; 99284-25; J1100

== ENCOUNTER 2023-07-22 21:49 | Emergency (ER) | payer MEDICARE, OTHER ==
[2023-07-22 21:53] VITALS: BMI 25.7
[2023-07-22] MEDS ORDERED: FLUORESCEIN NA 1 EA STRIP OD ONE (23:26)
[2023-07-22] MEDS ORDERED: TETRACAINE 0.5% HCL 0.6ML DROPPER.BOTTLE OD ONE (23:26)
[2023-07-22] MEDS ORDERED: FLUORESCEIN NA 1 EA STRIP ONE (23:33)
[2023-07-22] MEDS ORDERED: TETRACAINE 0.5% OPHTH SOLN 2 ML BOTTLE ONE (23:33)
[2023-07-23 01:27] VITALS: BP 113/79; PULSE 76; RESP 16; TEMP 97.7
[2023-07-23] MEDS ORDERED: ACETAMINOPHEN 325 MG TABLET (FP) ONE (02:36)
[2023-07-23] MEDS ORDERED: ACETAMINOPHEN 325 MG TABLET (FP) PO ONE (02:38)
== END 2023-07-23 03:07 | disposition short-term general hospital (02) ==
LOC: JER 21:49
DX: H57.12 Ocular pain, left eye (principal); H53.8 Other visual disturbances; H57.89 Other specified disorders of eye and adnexa; R11.0 Nausea; H54.7 Unspecified visual loss; Z20.822 Contact with and (suspected) exposure to COVID-19
CPT/HCPCS: 0241U-QW; 82962; 99285-25